=== PATIENT | female | born 1990 ===

== ENCOUNTER 2024-12-11 07:00 | Inpatient (IN) | payer OTHER ==
[~2024-12-11] VITALS: Ht 160 cm; Wt 91.6 kg
[2024-12-11 08:45] LABS: URINE APPEARANCE Clear; URINE BILIRRUBIN Negative (NEGATIVE); URINE BLOOD Negative; URINE COLOR Yellow; URINE GLUCOSE Negative (NEGATIVE); URINE KETONE Negative (NEGATIVE); URINE LEUKOCYTE Negative; URINE NITRATE Negative; URINE PROTEIN Negative (NEGATIVE); URINE UROBILINOGEN 0.2 E.U./dl
[2024-12-11 08:46] LABS: URINE EPITHELIAL CELLS 8.7 uL (0.0-38.8); URINE RBC 16.1 uL (0.0-20.8); URINE WBC 2.5 uL (0.0-23.2)
[2024-12-11] MEDS ORDERED: PROTONIX40 MG PO (08:51)
[2024-12-11] MEDS ORDERED: PEPCID40 MG PO (08:52)
[2024-12-11] MEDS ORDERED: TAPAZOLE5 MG PO (08:52)
[2024-12-11 08:58] LABS: HEMOGLOBIN 14.1 g/dL (12.0-15.00); MEAN CELL VOLUME 73.4 fL (80.00-100.00); MEAN CORPUSCULAR HEMOGLOBIN 24.6 pg (27.00-32.0); MEAN CORPUSCULAR HGB CONC 33.6 g/dl (32.0-36.0); PLATELET COUNT 296 K/uL (150-450); RED BLOOD COUNT 5.72 M/uL (4.00-6.00); RED CELL DISTRIBUTION WIDTH 14.4 % (11.5-14.5)
[2024-12-11 08:59] VITALS: BP 123/79
[2024-12-11 09:35] LABS: INR 1.03; PARTIAL THROMBOPLASTIN TIME 30.5 SECONDS (22.0-34.0)
[2024-12-11 09:58] LABS: ALBUMIN 3.8 gm/dL (3.4-5.0); BILIRUBIN TOTAL 0.56 mg/dL (0.3-1.2); CALCIUM 9.6 mg/dL (8.5-10.1); CREATININE SERUM 0.72 mg/dL (0.55-1.02); GFR 92.18; GLOBULINA 3.5 G/DL (2.4-3.5); POTASSIUM 4.45 mEq/L (3.5-5.1); TOTAL PROTEIN 7.3 gm/dL (6.4-8.2)
[2024-12-11 10:08] LABS: PROTHROMBIN TIME 11.2 SECONDS (9.0-11.5)
[2024-12-14] MEDS ORDERED: ENALAPRILAT DIHYDRATE 1.25 MG/ML VIAL IV PRN (07:45)
[2024-12-14] MEDS ORDERED: ONDANSETRON HCL 2 MG/ML VIAL IV PRN (07:45)
[2024-12-14] MEDS ORDERED: DEXAMETHASONE SODIUM PHOSPHATE 4 MG/ML VIAL ONE (08:08)
[2024-12-14] MEDS ORDERED: TRAMADOL HCL 50 MG TABLET PO SCH (09:00)
[2024-12-14] MEDS ORDERED: ACETAMINOPHEN 500 MG GEL..CAP PO SCH (09:00)
[2024-12-14] MEDS ORDERED: Calcium Carbonate 1 TAB TABLET PO SCH (09:00)
[2024-12-14] MEDS ORDERED: TRAMADOL HCL 50 MG TABLET PO PRN (10:09)
[2024-12-14] MEDS ORDERED: MORPHINE SULFATE 4 MG/ML VIAL IV ONE ×2 (10:50→11:20)
[2024-12-14] MEDS ORDERED: ENALAPRILAT DIHYDRATE 1.25 MG/ML VIAL IV ONE (11:30)
[2024-12-14 16:53] VITALS: BP 142/83; O2SAT 95
[2024-12-14] MEDS ORDERED: GABAPENTIN 100 MG CAPSULE PO SCH (17:00)
[2024-12-14] MEDS ORDERED: CYCLOBENZAPRINE HCL 5 MG TABLET PO SCH (17:00)
[2024-12-15] VITALS: BP 107/67; O2SAT 95
[2024-12-15] MEDS ORDERED: LEVOTHYROXINE SODIUM 137 MCG TABLET PO SCH (07:00)
[2024-12-15 08:00] VITALS: BP 131/80; O2SAT 95
== END 2024-12-15 12:01 | disposition home or self-care (01) | DRG 627 ==
LOC: O/R 12-14 05:30 → SURH 12-14 05:30
PROVIDERS: ADMIT Surgery; ATTEND Surgery
PROC: 0GTK0ZZ Resection of Thyroid Gland, Open Approach (ICD-10-PCS; principal; 2024-12-14 07:00)
DX: E05.00 Thyrotoxicosis with diffuse goiter without thyrotoxic crisis or storm (principal)